=== PATIENT | female | born 1980 | race Caucasian/White ===

== ENCOUNTER 2018-08-24 06:52 | Emergency (ER) | payer BC ==
[~2018-08-24] VITALS: Ht 162.6 cm; Wt 56.7 kg
[2018-08-24 07:00] VITALS: BP_SYST 114
[2018-08-24] MEDS ORDERED: methylPREDNISolone SOD SUCC/PF 62.5 MG/ML VIAL IM ONE (08:15)
[2018-08-24 08:40] VITALS: BP_SYST 114
== END 2018-08-24 08:40 | disposition home or self-care (01) ==
LOC: SED 06:52
DX: R53.1 Weakness (principal)
CPT/HCPCS: 81025; 96372; 99283; J2930

== ENCOUNTER 2019-04-23 09:51 | Emergency (ER) | payer BC ==
[~2019-04-23] VITALS: Ht 162.6 cm; Wt 58.1 kg
[2019-04-23 09:51] VITALS: BP_SYST 127
--- NOTE | 2019-04-23 09:51 | NUR ---
VIRGINIE BACK TO BED #3 AND TRIAGED. REPORT GIVEN TO SHEA
--- NOTE | 2019-04-23 10:20 | NUR ---
MO Rodriguez at bedside examining patient.
[2019-04-23] MEDS ORDERED: PREDNISONE 20 MG TABLET PO ONE (10:30)
--- NOTE | 2019-04-23 10:35 | NUR ---
BIB [facility] for MS flare up since Sunday night. C/O bilat hand numbness, body pain with light touch, vision "closing". +n/v/dizziness intermittent. Last flare up was 8-10 months lasted approx 1 week. Does not have a neurologist or PMD at this time. Denies chest pain, denies SOB.
[2019-04-23 10:57] LABS: BASOPHILS % (AUTO) 0.9 % (0.0-2.0); EOSINOPHILS % (AUTO) 0.5 % (0.0-4.0); HEMATOCRIT 39.8 % (36-48); HEMOGLOBIN 13.6 g/dL (12.0-16.0); LYMPHOCYTES # (AUTO) 1.8 K/uL (1.0-5.5); LYMPHOCYTES % (AUTO) 32.6 % (20.5-51.5); MEAN CORPUSCULAR HEMOGLOBIN 30 pg (27-31); MEAN CORPUSCULAR HGB CONC 34 % (32-36); MEAN CORPUSCULAR VOLUME 89 fL (79.0-98.0); MONOCYTES # (AUTO) 0.4 K/uL (0.0-1.0); MONOCYTES % (AUTO) 7.5 % (1.7-9.3); NEUTROPHILS # (AUTO) 3.3 K/uL (1.8-7.7); NEUTROPHILS % (AUTO) 58.5 % (40.0-70.0); PLATELET COUNT (AUTO) 326 K/uL (130-430); RED BLOOD CELL COUNT(AUTO) 4.49 MIL/uL (4.2-6.2); RED CELL DISTRIBUTION WIDTH 13.7 % (9.0-15.0); WHITE BLOOD COUNT (AUTO) 5.6 K/uL (4.8-10.8)
--- NOTE | 2019-04-23 11:04 | NUR ---
Medicated per MD orders. Tolerated well. No adverse reaction.
[2019-04-23 11:07] LABS: CALCIUM 9.2 mg/dL (8.4-11.0); CREATININE 0.79 mg/dL (0.55-1.30); POTASSIUM 3.6 mmol/L (3.5-5.1)
[2019-04-23 11:12] LABS: TOTAL BILIRUBIN 1.3 mg/dL (0.0-1.0)
[2019-04-23 11:20] LABS: BILIRUBIN,URINE NEGATIVE (NEGATIVE); BLOOD, URINE 3+ (NEGATIVE); CLARITY/URINE CLEAR (CLEAR); COLOR,URINE YELLOW (YELLOW); GLUCOSE,URINE NEGATIVE (NEGATIVE); KETONES,URINE TRACE (NEGATIVE); LEUKOCYTE ESTERASE ,URINE NEGATIVE (NEGATIVE); NITRITE, URINE NEGATIVE (NEGATIVE); PROTEIN URINE NEGATIVE (NEGATIVE); UROBILINOGEN,URINE 0.2 (0.2-1.0)
[2019-04-23 11:30] LABS: BACTERIA,URINE FEW /HPF (None Seen); WBC,URINE 0-3 /HPF (0-3)
[2019-04-23 11:33] LABS: BARBITURATE, URINE NEGATIVE (NEG <=200); BENZODIAZEPINE, URINE NEGATIVE (NEG <=150); CANNABINOID, URINE NEGATIVE (NEG <=50); COCAINE, URINE NEGATIVE (NEG <=150); METHAMPHETAMINES SCREEN,URINE NEGATIVE (NEG <=500); OPIATE, URINE NEGATIVE (NEG <=100); PHENCYCLIDINE SCREEN,URINE NEGATIVE (NEG <=25); UR TRICYCLIC ANTIDEPRESSANTS NEGATIVE (NEG <=300); URINE AMPHETAMINE NEGATIVE (NEG <=500); URINE METHADONE NEGATIVE (NEG <=200); URINE OXYCODONE SCREEN NEGATIVE (NEG <=100); URINE PROPOXYPHENE SCREEN NEGATIVE (NEG <=300)
[2019-04-23 11:50] VITALS: BP_SYST 119
--- NOTE | 2019-04-23 11:50 | NUR ---
Patient given written and verbal discharge instructions and verbalizes understanding. ER MD [email or web address] discussed with patient the results and treatment provided. Patient in stable condition. ID arm band removed. Rx of Prednisone, norco given. Patient educated on pain management and to follow up with PMD. Pain Scale 0. Opportunity for questions provided and answered. Medication side effect fact sheet provided.
== END 2019-04-23 11:50 | disposition home or self-care (01) ==
LOC: SED 09:51
DX: G35 Multiple sclerosis (principal)
CPT/HCPCS: 36415; 71045; 80053; 80307; 81000; 81025; 85025; 99284; J7512